=== PATIENT | female | born 1970 ===

== ENCOUNTER 2024-12-31 06:30 | Outpatient (RCR) | payer MEDICARE, SELFPAY | END 2025-01-29 23:59 | disposition home or self-care (01) | LOC: SPT 06:30 | PROVIDERS: Visit Provider Nurse Practitioner Family | DX: R15.1 Fecal smearing (principal) | CPT/HCPCS: 97110; 97162; 97530 ==

== ENCOUNTER 2025-04-01 06:30 | Outpatient (RCR) | payer MEDICARE, SELFPAY | END 2025-05-01 23:59 | disposition home or self-care (01) | LOC: SPT 06:30 | PROVIDERS: Visit Provider Nurse Practitioner Family | DX: R15.1 Fecal smearing (principal) | CPT/HCPCS: 97140; 97530 ==